=== PATIENT | female | born 1955 | race Caucasian/White ===

== ENCOUNTER → 2016-10-13 | Outpatient (CLI) | payer BC ==
--- NOTE | 2016-10-14 13:33 | MM ---
Reason for exam: screening (asymptomatic). Last mammogram was performed 1 year and 8 months ago. History: Patient is postmenopausal. Family history of breast cancer in cousin. Physical Findings: A clinical breast exam by your physician is recommended on an annual basis and results should be correlated with mammographic findings. MG Screening Mammo w CAD Bilateral CC and MLO view(s) were taken. Prior study comparison: February 19, 2015, mammogram, performed at [facility]. June 27, 2013, mammogram, performed at [facility]. There are scattered fibroglandular densities. There is no discrete abnormality. No significant changes when compared with prior studies. ASSESSMENT: Negative, BI-RAD 1 RECOMMENDATION: Routine screening mammogram of both breasts in 1 year.
== END | disposition home or self-care (01) ==
LOC: RADMAMWWP 06:57
PROVIDERS: ATTEND Specialist
DX: Z12.31 Encounter for screening mammogram for malignant neoplasm of breast (principal)

== ENCOUNTER → 2017-02-09 | Outpatient (CLI) | payer BC ==
[~2017-02-09] MED LIST: SODIUM CHLORIDE 0.9% 250 ML in EMPTY BAG 1 BAG IV PRN; SODIUM CHLORIDE 0.9% 500 ML in EMPTY BAG 1 BAG IV PRN; ZOLEDRONIC ACID 5 MG in SODIUM CHLORIDE 0.9% 100 ML IV NR
[2017-02-09 08:16] VITALS: BP 126/83; PULSE 70; RESP 16; TEMP 98.2
== END | disposition home or self-care (01) ==
LOC: PROCWHC3 07:50
PROVIDERS: ATTEND Family Medicine
DX: M81.0 Age-related osteoporosis without current pathological fracture (principal)
CPT/HCPCS: 96365; J3489

== ENCOUNTER → 2017-10-12 | Outpatient (CLI) | payer BC ==
--- NOTE | 2017-10-13 08:12 | CT ---
EXAMINATION TYPE: CT heart w calcium score DATE OF EXAM: 10/12/2017 COMPARISON: NONE HISTORY: Screening for cardiovascular disorder. 213.9 CT DLP: 53.9 mGycm Automated exposure control for dose reduction was used. CT CALCIUM SCORING Coronary calcium is a marker for plaque (fatty deposits) in a blood vessel or atherosclerosis (harden ing of the arteries). The presence and amount of calcium detected in a coronary artery by the CT sca n, indicates the presence and amount of atherosclerotic plaque. These calcium deposits appear years before the development of heart disease symptoms such as chest pain and shortness of breath. A calcium score is computed for each of the coronary arteries based upon the volume and density of th e calcium deposits. This can be referred to as your calcified plaque burden. It does not correspond directly to the percentage of narrowing in the artery but does correlate with the severity of the un derlying coronary atherosclerosis. PROCEDURE TECHNIQUE - Prospective Gating was used. Slice thickness: 3mm. Density threshold (HU): 130, Pixel threshold: 3, Algorithm: discrete. RESULTS Region: LM Calcium Score (Agatston): 0 Volume (mm3): 0 Region: RCA Calcium Score (Agatston): 0 Volume (mm3): 0 Region: LAD Calcium Score (Agatston): 8 Volume (mm3): 14 Region: CX Calcium Score (Agatston): 0 Volume (mm3): 0 Total: Calcium Score (Agatston): 8 Volume (mm3): 14 TOTAL CALCIUM SCORE: 8 OTHER: Ascending aorta is upper limits of normal size measuring 3.8 cm. Main pulmonary artery is wit hin normal limits measuring 2.8 cm. Heart is not enlarged. No pulmonary nodules within the field-of-v iew, pulmonary masses, or focal consolidation. IMPRESSION: Calcium Score: 8 Implication: The total calcium score of 8 is the 73rd percentile for the patient's age and between t he 50th and 75th percentile for females between the ages of 55 and 64. Risk of Coronary Artery Disease: Very unlikely, less than 10%.
== END | disposition home or self-care (01) ==
LOC: RADCTMAIN 15:53
PROVIDERS: ATTEND Family Medicine
DX: Z13.6 Encounter for screening for cardiovascular disorders (principal); Z82.49 Family history of ischemic heart disease and other diseases of the circulatory system
CPT/HCPCS: 75571

== ENCOUNTER → 2017-10-22 | Outpatient (CLI) | payer BC ==
--- NOTE | 2017-10-22 10:53 | US ---
EXAMINATION TYPE: US abdomen complete DATE OF EXAM: 10/22/2017 COMPARISON: NONE CLINICAL HISTORY: R10.11 RUQ PAIN. epigastric pain that extends to back, hives on hands and arms, eye s swell EXAM MEASUREMENTS: Liver Length: 14.3 cm Gallbladder Wall: 0.2 cm CBD: 0.3 cm Spleen: 12.6 cm Right Kidney: 9.3 x 4.7 x 4.6 cm Left Kidney: 10.2 x 3.7 x 5.4cm Pancreas: wnl Liver: difficult to penetrate and slightly heterogeneous. This most commonly relates to hepatic stea tosis and limits evaluation for underlying hepatic masses. Gallbladder: wnl Evidence for sonographic Ovalles's sign: no CBD: wnl Spleen: Multiple hyperechoic foci within the splenic parenchyma are noted. These could relate to gra nulomas are hemangiomas although other etiologies are possible. Right Kidney: wnl Left Kidney: wnl Upper IVC: wnl Abd Aorta: wnl The intrahepatic portion of the IVC and proximal abdominal aorta are within normal limits. There is no evidence of cholelithiasis. Common bile duct is unremarkable. The visualized portions of the champion creas are homogenous. Kidneys are symmetric and free of hydronephrosis. No renal lesions are seen. IMPRESSION: 1. Slightly heterogenous and coarsened echotexture of the liver, most commonly relating to hepatic st eatosis. 2. Multiple hyperechoic foci within the splenic parenchyma favored to represent granulomas or hemangi omas. 3. No sonographic evidence of cholelithiasis or acute cholecystitis.
== END ==
LOC: RADUSWWP 10:08
PROVIDERS: ATTEND Family Medicine
DX: R93.2 Abnormal findings on diagnostic imaging of liver and biliary tract (principal)
CPT/HCPCS: 76700

== ENCOUNTER 2017-11-22 08:08 | Day surgery (SDC) | payer BC ==
[2017-11-18 10:01] VITALS: BMI 28.3
[~2017-11-22 08:08] MED LIST changes: +LACTATED RINGERS 1,000 ML IV SCH; -SODIUM CHLORIDE 0.9% 250 ML in EMPTY BAG 1 BAG IV PRN; -SODIUM CHLORIDE 0.9% 500 ML in EMPTY BAG 1 BAG IV PRN; -ZOLEDRONIC ACID 5 MG in SODIUM CHLORIDE 0.9% 100 ML IV NR
[2017-11-22 08:26] VITALS: TEMP 97.8
[2017-11-22] MEDS ORDERED: LIDOCAINE 1% 20 ML VIAL (10MG/ML) FOR IV START INTRADERMA ONE (08:27)
[2017-11-22] MEDS ORDERED: fentaNYL (PF) 50 MCG/ML 2 ML AMP ONE (09:12)
[2017-11-22] MEDS ORDERED: LIDOCAINE 1% INJ 10MG/ML (20 ML MDV) ONE (09:12)
[2017-11-22] MEDS ORDERED: PROPOFOL 10 MG/ML 20 ML VIAL IV ONE (09:12)
[2017-11-22 09:36] VITALS: RESP 16
--- NOTE | 2017-11-22 09:37 | P.PCN ---
Date of Procedure: 11/22/17 Procedure(s) Performed: Procedure: Esophagogastroduodenoscopy and biopsy. Preoperative diagnosis: Epigastric pain and atypical chest pains. Postoperative diagnosis: 1. Small sliding hiatal hernia with no obvious esophagitis or complicated reflux disease. 2. Mild antral gastritis and duodenitis. 3. Multiple biopsies obtained from the duodenum, antrum and esophagus. Preparation sedation: Was provided by anesthesia. Brief clinical history: The patient is a 62-year-old female who was been experiencing epigastric pain and episodes of atypical chest pains over the last several months, not improving with acid suppressive therapy. The patient the was previously evaluated in July 2016 for odynophagia which at the time I suspected was related to pill-induced esophagitis and she has improved with medical therapy at that time. The patient has no alarm symptoms, currently, including any evidence of bleeding. Her abdominal ultrasound was normal. Procedure: With the patient on her left lateral decubitus position and after informed consent and adequate sedation, I passed the Olympus-GIF 160 video upper endoscope through the cricopharyngeus down the esophagus. GE junction was around 37 cm from the incisors and there was a small sliding hiatal hernia. The esophagus did not show any erosions, ulcers, strictures or Beck's esophagus. The endoscope was then passed into the stomach which was insufflated with air and inspected in detail including the retroflex view in the cardia. There was some mottling and erythema in the antrum but no ulcers or erosions. Pyloric channel, duodenal bulb, post bulbar area and descending duodenum showed minimal erythema. I obtained biopsies from the duodenum, antrum and esophagus then the endoscope was withdrawn. The patient tolerated the procedure well. Plan: The patient was reassured. Will await biopsy results. Further plans can be made based on her course and biopsy results. She will follow-up with you as planned and I will be happy to see in the office of her symptoms persist.
[2017-11-22 09:48] VITALS: BP 130/86; PULSE 74
== END 2017-11-22 10:15 | disposition home or self-care (01) ==
LOC: ORWHC2ENDO 08:08
DX: K29.70 Gastritis, unspecified, without bleeding (principal); K29.80 Duodenitis without bleeding; K21.0 Gastro-esophageal reflux disease with esophagitis; K44.9 Diaphragmatic hernia without obstruction or gangrene; M19.90 Unspecified osteoarthritis, unspecified site; I10 Essential (primary) hypertension; Z88.2 Allergy status to sulfonamides; Z79.899 Other long term (current) drug therapy
CPT/HCPCS: 88305; 43239; J2001; J3010; J2704

== ENCOUNTER → 2018-05-11 | Outpatient (CLI) | payer BC ==
[2018-05-11 12:27] LABS: Albumin 4.5 g/dL (3.5-5.0); Calcium 10.1 mg/dL (8.4-10.2); Potassium 4.6 mmol/L (3.5-5.1); Total Bilirubin 0.3 mg/dL (0.2-1.3); Total Protein 7.7 g/dL (6.3-8.2)
[2018-05-11 12:32] LABS: Basophils % (A) 1 %; Eosinophils % (A) 1 %; HCT 38.5 % (34.0-46.0); HGB 12.6 gm/dL (11.4-16.0); Lymphocytes # (A) 1.1 k/uL (1.0-4.8); Lymphocytes % (A) 31 %; MCH 28.9 pg (25.0-35.0); MCHC 32.8 g/dL (31.0-37.0); MCV 88.2 fL (80.0-100.0); Monocytes # (A) 0.2 k/uL (0-1.0); Monocytes % (A) 6 %; Neutrophils % (A) 59 %; Platelet Count 175 k/uL (150-450); RBC 4.37 m/uL (3.80-5.40); RDW 13.7 % (11.5-15.5); WBC 3.4 k/uL (3.8-10.6)
[2018-05-11 12:41] LABS: T4, Free (Free Thyroxine) 0.94 ng/dL (0.78-2.19)
[2018-05-11 13:19] LABS: Erythrocyte Sedimentation Rate 14 mm/hr (0-20)
[2018-05-11 18:45] LABS: Thyroid Peroxidase Antibodies 40.2 U/mL (0.0-60.0)
[2018-05-12 12:51] LABS: T4, Total 7.1 ug/dL (4.5 - 10.9)
== END ==
LOC: LABWHC1 11:27
PROVIDERS: ATTEND Allergy & Immunology
DX: L50.8 Other urticaria (principal)
CPT/HCPCS: 36415; 80053; 84436; 84439; 84443; 85025; 85652; 86376; 86800; 88184; 88185

== ENCOUNTER → 2018-05-24 | Outpatient (CLI) | payer BC | END | disposition home or self-care (01) | LOC: LABWHC1 09:08 | PROVIDERS: ATTEND Allergy & Immunology | DX: L50.8 Other urticaria (principal) | CPT/HCPCS: 36415 ==

== ENCOUNTER → 2019-10-12 | Outpatient (CLI) | payer BC ==
--- NOTE | 2019-10-12 12:16 | US ---
EXAMINATION TYPE: US kidneys/renal and bladder DATE OF EXAM: 10/12/2019 COMPARISON: US 10/22/2017 CLINICAL HISTORY: N18.2 chronic kidney stage 2. EXAM MEASUREMENTS: Right Kidney: 10.1 x 4.5 x 5.2 cm Left Kidney: 10.2 x 4.7 x 4.5 cm Right Kidney: No hydronephrosis or masses seen Left Kidney: No hydronephrosis or masses seen Bladder: wnl Bilateral Jets seen: Yes IMPRESSION: Normal bilateral renal ultrasound
== END | disposition home or self-care (01) ==
LOC: RADUSWWP 10:48
PROVIDERS: ATTEND Family Medicine
DX: N18.2 Chronic kidney disease, stage 2 (mild) (principal)
CPT/HCPCS: 76770

== ENCOUNTER → 2020-04-19 | Outpatient (CLI) | payer BC ==
--- NOTE | 2020-04-19 12:54 | P.STRESS ---
- Stress Test Note Stress Test Results/Findings: Exam Performed: stress test Exam Date: 04/19/20 Reason for Exam: FAMILY HX, FATIGUE Height: 5 ft 5 in Weight: 79.379 kg Protocol: MURIEL Stage: III Duration of Exercise: 7:00 Resting Heart Rate: 84 Resting Blood Pressure: 140/87 Maximum Achieved Heart Rate: 154 Maximum Achieved Blood Pressure: 199/98 85% PMHR: 134 100% PMHR: 158 METS: 8.5 Technologist Comment: Stress Test Results/Findings: Patient underwent exercise stress EKG with a Muriel protocol treadmill stress hilario t. Patient exercised into Stage 3 for a total of 7 minutes reaching a total of 8.5 METS. Patient's maximum heart rate was 154 which represented 97 % age- predicted maximum heart rate. Stress EKG findings: At baseline patient's EKG showed normal sinus rhythm with a heart rate of 84 bpm, normal axis, T wave inversions in aVL and V2. At peak exercise, EKG showed no significant change from baseline EKG.. Conclusions: 1. Normal EKG response to exercise without evidence of inducible ischemia. 2. Fair exercise capacity.
--- NOTE | 2020-04-19 15:26 | EST ---
Stress Test Results/Findings: Exam Performed: stress test Exam Date: 04/19/20 Reason for Exam: FAMILY HX, FATIGUE Height: 5 ft 5 in Weight: 79.379 kg Protocol: MURIEL Stage: III Duration of Exercise: 7:00 Resting Heart Rate: 84 Resting Blood Pressure: 140/87 Maximum Achieved Heart Rate: 154 Maximum Achieved Blood Pressure: 199/98 85% PMHR: 134 100% PMHR: 158 METS: 8.5 Technologist Comment: Stress Test Results/Findings: Patient underwent exercise stress EKG with a Muriel protocol treadmill stress test. Patient exercised into Stage 3 for a total of 7 minutes reaching a total of 8.5 METS. Patient's maximum heart rate was 154 which represented 97 % age- predicted maximum heart rate. Stress EKG findings: At baseline patient's EKG showed normal sinus rhythm with a heart rate of 84 bpm, normal axis, T wave inversions in aVL and V2. At peak exercise, EKG showed no significant change from baseline EKG.. Conclusions: 1. Normal EKG response to exercise without evidence of inducible ischemia. 2. Fair exercise capacity. MTDD
== END | disposition home or self-care (01) ==
LOC: RADNMMAIN 08:26
DX: Z13.6 Encounter for screening for cardiovascular disorders (principal); Z82.49 Family history of ischemic heart disease and other diseases of the circulatory system
CPT/HCPCS: 93017

== ENCOUNTER 2021-12-02 18:22 | Emergency (ER) | payer BC ==
[2021-12-02 18:40] VITALS: BP 143/95; RESP 18
--- NOTE | 2021-12-02 19:06 | ED ---
General Adult HPI - General Chief complaint: Recheck/Abnormal Lab/Rx Stated complaint: Covid+,Wants antibody Time Seen by Provider: 12/02/21 18:35 Source: patient, RN notes reviewed, old records reviewed Mode of arrival: ambulatory - History of Present Illness Initial comments: This is a 66-year-old female presents emergency Department with cough and some congestion over the last 2 days. Patient states she went to the doctor's office today and was tested positive for COVID. Patient states she's also little low- grade fever last 2 days. Patient states she has been immunized but never got the booster. Patient has a history of some kidney disease as well as lupus. Patient denies any chest pain difficulty breathing or palpitations. Patient denies abdominal pain patient denies nausea vomiting diarrhea. - Related Data Home Medications Medication Instructions Recorded Confirmed Cholecalciferol [Vitamin D3 (25 5,000 unit PO PC-SUPPER 09/04/15 11/18/17 Mcg = 1000 Iu)] aMILoride HCL 5 mg PO DAILY 09/04/15 11/18/17 Losartan [Cozaar] 25 mg PO DAILY 07/21/16 11/18/17 Calcium Carbonate [Calcium] 600 mg PO PC-SUPPER 02/09/17 11/18/17 Calcium Carbonate [Tums] 500 mg PO BID 11/18/17 11/18/17 Ranitidine HCl 150 mg PO BID 11/18/17 11/18/17 Allergies Allergy/AdvReac Type Severity Reaction Status Date / Time Sulfa (Sulfonamide Allergy Swelling-"could Verified 12/02/21 18:33 Antibiotics) barely move" Review of Systems ROS Statement: Those systems with pertinent positive or pertinent negative responses have been documented in the HPI. ROS Other: All systems not noted in ROS Statement are negative. Past Medical History Past Medical History: GERD/Reflux, Hypertension, Osteoarthritis (OA) Additional Past Medical History / Comment(s): Lupus, hx migraines, epigastric pain, hx ulcers, History of Any Multi-Drug Resistant Organisms: None Reported Past Surgical History: Hysterectomy, Orthopedic Surgery, Tonsillectomy Additional Past Surgical History / Comment(s): surgery to unblock fallopian tubes, left shoulder rotator cuff Past Anesthesia/Blood Transfusion Reactions: Blood Transfusion Reaction, Motion Sickness Additional Past Anesthesia/Blood Transfusion Reaction / Comment(s): hives with blood transfusion Past Psychological History: No Psychological Hx Reported Smoking Status: Never smoker Past Alcohol Use History: Occasional Past Drug Use History: None Reported - Past Family History Mother Family Medical History: No Reported History Brother(s) Family Medical History: Cancer General Exam - General Exam Comments Initial Comments: GENERAL: Patient is well-developed and well-nourished. Patient is nontoxic and well- hydrated and is in mild distress. ENT: Neck is soft and supple. No significant lymphadenopathy is noted. Oropharynx is clear. Moist mucous membranes. Neck has full range of motion without eliciting any pain. EYES: The sclera were anicteric and conjunctiva were pink and moist. Extraocular movements were intact and pupils were equal round and reactive to light. Eyelids were unremarkable. PULMONARY: Unlabored respirations. Good breath sounds bilaterally. No audible rales rhonchi or wheezing was noted. CARDIOVASCULAR: There is a regular rate and rhythm without any murmurs gallops or rubs. ABDOMEN: Soft and nontender with normal bowel sounds. SKIN: Skin is clear with no lesions or rashes and otherwise unremarkable. NEUROLOGIC: Patient is alert and oriented x3. Cranial nerves II through XII are grossly intact. Motor and sensory are also intact. Normal speech, volume and content. Symmetrical smile. MUSCULOSKELETAL: Normal extremities with adequate strength and full range of motion. No lower extremity swelling or edema. No calf tenderness. LYMPHATICS: No significant lymphadenopathy is noted PSYCHIATRIC: Normal psychiatric evaluation. Course Vital Signs 12/02/21 18:33 Temperature 99.1 F Pulse Rate 79 Respiratory 18 Rate Blood Pressure 143/95 O2 Sat by Pulse 97 Oximetry Medical Decision Making - Medical Decision Making Chest x-ray shows no acute abnormality. Patient received monoclonal antibodies Disposition Clinical Impression: COVID-19 Disposition: HOME SELF-CARE Condition: Good Instructions (If sedation given, give patient instructions): Coronavirus Disease 2019 (COVID-19) Is patient prescribed a controlled substance at d/c from ED?: No Referrals: Corona Randle MD [Primary Care Provider] - 1-2 days Time of Disposition: 19:35
--- NOTE | 2021-12-02 19:31 | XR ---
EXAMINATION TYPE: XR chest 2V DATE OF EXAM: 12/02/2021 7:20 PM COMPARISON: Multiple radiographs, with the most recent on 07/21/2016 TECHNIQUE: XR chest 2V Frontal and lateral views of the chest. CLINICAL INDICATION:Female, 66 years old with history of Difficulty breathing. FINDINGS: Lungs/Pleura: There is no evidence of pleural effusion, focal consolidation, or pneumothorax. Pulmonary vascularity: Unremarkable. Heart/mediastinum: Cardiomediastinal silhouette is unremarkable. Musculoskeletal: No acute osseous pathology. IMPRESSION: No acute cardiopulmonary disease/process.
[2021-12-02] MEDS ORDERED: BEBTELOVIMAB (EUA) 175 MG/2 ML VIAL IV ONE (20:00)
[2021-12-02 21:14] VITALS: PULSE 78; TEMP 98.4
== END 2021-12-02 21:05 | disposition home or self-care (01) ==
LOC: EC 18:22
DX: U07.1 COVID-19 (principal); I10 Essential (primary) hypertension; K21.9 Gastro-esophageal reflux disease without esophagitis; Z79.899 Other long term (current) drug therapy
CPT/HCPCS: 71046; 99283; Q0222